=== PATIENT | male | born 1940 | race Caucasian/White ===

== ENCOUNTER 2023-06-01 07:01 | Day surgery (SDC) | payer MEDICARE, OTHER ==
[~2023-06-01] VITALS: Ht 172.7 cm; Wt 60.4 kg
[2023-06-01] VITALS (10 sets, daily range): BP systolic 114–134; BP diastolic 54–76; PULSE 68–90
[~2023-06-01 07:01] MED LIST: ALIR150P6 SQ; AMLO5TAB66 PO; ASPI-1444 PO; ASPIRIN 81 MG CHEWABLE TABLET PO ONE; ATOR40TA71 PO; DAPA10TA PO; DIAZEPAM 5 MG TABLET PO ONE; DOXE10CA2 PO; DiphenhydrAMINE HCL 50 MG CAPSULE PO ONE; GLIM1TAB18 PO; ISOS30TA68 PO; LEVO25TA9 PO; METO-408 PO; OMEP40CA21 PO; RANO10005 PO; SITA1TAB6 PO; SODIUM CHLORIDE 0.9% 1,000 ML IV SCH
[2023-06-01] MEDS ORDERED: SODIUM CHLORIDE 0.9% 1,000 ML ONE (07:03)
[2023-06-01] MEDS ORDERED: DiphenhydrAMINE HCL 50 MG CAPSULE ONE (08:03)
[2023-06-01] MEDS ORDERED: DIAZEPAM 5 MG TABLET ONE (08:04)
[2023-06-01] MEDS ORDERED: ASPIRIN 81 MG CHEWABLE TABLET ONE (08:04)
[2023-06-01 08:06] LABS: GLUCOMETER DEV NAME(LOC) SDS.; GLUCOSE,POINT OF CARE 160 MG/DL (70-110)
[2023-06-01] MEDS ORDERED: LINA145C PO (08:30)
[2023-06-01] MEDS ORDERED: SODIUM BICARBONATE 50 MEQ/50 ML VIAL ONE (09:24)
[2023-06-01] MEDS ORDERED: HEPARIN SODIUM,PORCINE 1,000 UNITS/ML 10 ML VIAL ONE (09:24)
[2023-06-01] MEDS ORDERED: LIDOCAINE/PF 1% 30 ML VIAL ONE (09:24)
[2023-06-01] MEDS ORDERED: HEPARIN SODIUM 1000 UNITS/NS 1,000 ML ONE (09:25)
[2023-06-01] MEDS ORDERED: 0.9% SODIUM CHLORIDE 10 ML SYRINGE IVP ONE (09:25)
[2023-06-01] MEDS ORDERED: IOHEXOL 300 MG/ML 100 ML VIAL ONE (09:25)
[2023-06-01] MEDS ORDERED: HEPARIN SODIUM 1000 UNITS/NS 500 ML ONE (09:41)
[2023-06-01] MEDS ORDERED: FentaNYL CITRATE PF 100 MCG/2 ML VIAL ONE (09:42)
[2023-06-01] MEDS ORDERED: MIDAZOLAM HCL 2 MG/2 ML VIAL ONE (09:43)
[2023-06-01] MEDS ORDERED: IOHEXOL 300 MG/ML 100 ML VIAL IARTER ONE ×2 (09:45→10:45)
[2023-06-01] MEDS ORDERED: LIDOCAINE 1% 30 ML/SOD BICARB 8.4% 4 ML SQ ONE (09:45)
[2023-06-01] MEDS ORDERED: HEPARIN SODIUM 1000 UNITS/NS 1,000 ML IARTER ONE (09:45)
[2023-06-01 09:47] LABS: PROTHROMBIN TIME 10.4 SEC (9.4-11.6)
[2023-06-01] MEDS ORDERED: HydrALAZINE HCL 20 MG/ML VIAL ONE (10:34)
[2023-06-01] MEDS ORDERED: HydrALAZINE HCL 20 MG/ML VIAL IVP ONE (10:45)
[2023-06-01] MEDS ORDERED: MIDAZOLAM HCL 2 MG/2 ML VIAL IVP ONE (10:45)
[2023-06-01] MEDS ORDERED: FentaNYL CITRATE PF 100 MCG/2 ML VIAL IVP ONE (10:45)
== END 2023-06-01 15:10 | disposition home or self-care (01) ==
LOC: CATHLAB 07:01
PROVIDERS: ATTEND Internal Medicine Interventional Cardiology
DX: I25.10 Atherosclerotic heart disease of native coronary artery without angina pectoris (principal); I25.82 Chronic total occlusion of coronary artery; R93.1 Abnormal findings on diagnostic imaging of heart and coronary circulation; K44.9 Diaphragmatic hernia without obstruction or gangrene; R94.31 Abnormal electrocardiogram [ECG] [EKG]; I44.4 Left anterior fascicular block; Z95.2 Presence of prosthetic heart valve; Z98.890 Other specified postprocedural states
CPT/HCPCS: 82962; 85610; 85730; 36415; 99152; 93005; 93458; C1760; J3010; J1644 ×2; J0360; J3490 ×2; J2250; J7030; Q9967